=== PATIENT | male | born 2005 | race Two or more races ===

== ENCOUNTER 2024-10-22 02:41 | Emergency (ER) | payer MEDICAID, OTHER ==
[~2024-10-22] VITALS: Ht 165.1 cm; Wt 81.8 kg
[2024-10-22 02:55] VITALS: BP 124/53; PULSE 69; RESP 18; TEMP 98.7; O2SAT 96
[2024-10-22 03:19] LABS: Urine Bacteria None Seen /hpf (None Seen)
[2024-10-22 03:30] LABS: Urine Blood Negative /uL (Negative); Urine Clarity Clear (Clear); Urine Color Yellow (Yellow); Urine Mucus FEW (None Seen); Urine Protein, UAD Negative (Negative); Urine Specific Gravity 1.028 (1.001-1.035); Urine Squamous Epithelial Cell None Seen /hpf (<5); Urine Urobilinogen 2 mg/dL (Negative); Urine WBC 1 /HPF (0-3)
--- NOTE | 2024-10-22 03:39 | ED.PDOC ---
General HPI Comments A 19 YEAR OLD MALE PRESENTS TO THE ED WITH COMPLAINT OF LEFT GROIN PAIN. LEFT GROIN/TESTICLE/LOWER ABDOMINAL PAIN STARTING YESTERDAY MORNING. PT STATE THERE IS SOME PAIN WITH URINATION, PAIN INCREASES WITH EXTENSION OF THE LEFT LEG PATIENT DENIES FEVER, CHILLS, SHORTNESS OF BREATH, CHEST PAIN, NAUSEA, VOMITING, HEADACHE, OR OTHER COMPLAINTS. NO OTHER SYMPTOMS OR MODIFYING FACTORS AT THIS TIME. Chief Complaint: Testicle Pain Time Seen by MD: 03:09 Reviewed notes: Nurses Notes, Medications, Allergies Allergies: Coded Allergies: NO KNOWN ALLERGIES (Unverified , 10/22/24) Information Source: Patient Mode of Arrival: Ambulatory Past Medical History PAST MEDICAL HISTORY: Denies Surgical History: Denies all surgeries Family History Family History: Reviewed,noncontributory to illness Social History Smoker: Non-Smoker Alcohol: Denies ETOH Use Drugs: Denies Drug Use Constitutional: denies: chills, diaphoresis, fatigue, fever, malaise, sweats, weakness, others EENTM: denies: blurred vision, double vision, ear bleeding, ear discharge, ear drainage, ear pain, ear ringing, eye pain, eye redness, hearing loss, mouth pain, mouth swelling, nasal discharge, nose bleeding, nose congestion, nose pain, photophobia, tearing, throat pain, throat swelling, voice changes, others Respiratory: denies: cough, hemoptysis, orthopnea, SOB at rest, shortness of breath, SOB with excertion, stridor, wheezing, others Cardiovascular: denies: chest pain, dizzy spells, diaphoresis, Dyspnea on exertion, edema, irregular heart beat, left arm pain, lightheadedness, palpitations, PND, syncope, others Gastrointestinal: denies: abdomen distended, abdominal pain, blood streaked bowels, constipated, diarrhea, dysphagia, difficulty swallowing, hematemesis, melena, nausea, poor appetite, poor fluid intake, rectal bleeding, rectal pain, vomiting, others Genitourinary: reports: others (LEFT GROIN PX); denies: burning, dysuria, flank pain, frequency, hematuria, incontinence, penile discharge, penile sore, pain, testicle pain, testicle swelling, urgency Neurological: denies: dizziness, fainting, headache, left sided numbness, left sided weakness, numbness, paresthesia, pre-existing deficit, right sided numbness, right sided weakness, seizure, speech problems, tingling, tremors, weakness, others Musculoskeletal: denies: back pain, gout, joint pain, joint swelling, muscle pain, muscle stiffness, neck pain, others Integumetry: denies: bruises, change in color, change in hair/nails, dryness, laceration, lesions, lumps, rash, wounds, others Allergic/Immunocompromised: denies: Difficulty Healing, Frequent Infections, Hives, Itching, others Hematologic/Lymphatic: denies: anemia, blood clots, easy bleeding, easy bruising, swollen glands, others Endocrine: denies: excessive hunger, excessive sweating, excessive thirst, excessive urination, flushing, intolerance to cold, intolerance to heat, unexplained weight gain, unexplained weight loss, others Psychiatric: denies: anxiety, bipolar disorder, depression, hopeless, panic disorder, schizophrenia, sleepless, suicidal, others Physical Exam General Appearance: No Apparent Distress, Normal HEENT: Pharynx Normal Neck: Full Range of Motion, Non-Tender Respiratory: Lungs Clear, No Respiratory Distress, Normal Breath Sounds Cardiovascular: No Edema, No Murmur, Normal Peripheral Pulses, Regular Rate/Rhythm Breast Exam: Deferred Gastrointestinal: No Organomegaly, Non Tender, No Pulsatile Mass, Normal Bowel Sounds, Soft Genitalia: Other (MODERATE LEFT GROIN PAIN ON PALPATION. NEGATIVE TESTICULAR PAIN OR EDEMA. NO BULGING WITH COUGHING NO NOTED HERNIA ON PHYSICAL EXAM. ) Pelvic: Deferred Rectal: Deferred Extremities: Normal capillary refill, Normal inspection, Normal range of motion, Non-tender, No pedal edema Musculoskeletal : Apperance: Normal Neurologic: Alert, curing press maintainer II-XII nml as Tested, No Motor Deficits, Normal Affect, Normal Mood, No Sensory Deficits Cerebellar Function: Normal Reflexes: Normal Skin: Dry, Normal Color, Warm Lymphatic: No Adenopathy Was a procedure done? Was a procedure done?: No Differential Diagnosis Kidney stone (Female): N/A Kidney stone (Male): Strain, Urinary obstruction, Urolithiasis, Urinary tract infection Penile/Scrotal: Epidiymitis, STD, UTI, Urinary Retention X-Ray, Labs, Meds, VS Vital Signs Date Time Temp Pulse Resp B/P (MAP) Pulse Ox O2 Delivery O2 Flow Rate FiO2 10/22/24 02:55 98.7 69 18 124/53 (76) 96 10/22/24 02:55 Room Air 10/22/24 02:55 98.7 69 18 124/53 (76) 96 98.7 Lab Test 10/22/24 03:00 Range/Units Urine Color Yellow Yellow Urine Clarity Clear Clear Urine pH 6.0 5.0-9.0 Urine Specific [place] 1.028 1.001-1.035 Urine Protein Negative Negative Urine Ketones Trace Negative Urine Blood Negative Negative /uL Urine Nitrite Negative Negative Urine Bilirubin Negative Negative Urine Urobilinogen 2 H Negative mg/dL Urine Leukocyte Esterase Negative Negative /uL Urine RBC <1 0 - 3 /hpf Urine Microscopic WBC 1 0-3 /HPF Urine Squamous Epithelial Cells None seen <5 /hpf Urine Bacteria None seen None Seen /hpf Urine Mucus Few None Seen Urine Glucose Normal Normal mg/dL Current Medications Medications (Trade) Dose Ordered Sig/Darcy Route Start Time Stop Time Status Last Admin Ketorolac Tromethamine (Toradol Injection) 60 mg ONCE ONCE IM 10/22/24 04:30 10/22/24 04:31 DC 10/22/24 04:23 X-Ray, Labs, Meds, VS Comment ULTRASOUND NEGATIVE. LIKELY MUSCLE STRAIN OF THE GROIN. PATIENT GIVEN TORADOL 60 MG IM HE REPORTS MODERATE IMPROVEMENT IN PAIN IS REQUESTING DISCHARGE AT THIS TIME SCRIPT IBUPROFEN. FOLLOW-UP WITH PCP IN 1 TO 2 DAYS. TAKE MEDICATIONS PRESCRIBED. RETURN TO ED FOR ANY NEW OR WORSENING SYMPTOMS. Time of 1ST Reevaluation: 05:25 Reevaluation 1ST: Improved Patient Education/Counseling: Diagnosis, Treatment, Prognosis, Need For Follow Up Family Education/Counseling: Diagnosis, Treatment, Prognosis, Need For Follow Up Departure 1 Departure Time of Disposition: 05:20 Impression: Primary Impression: Strain of left inguinal muscle Qualified Codes: S39.013A - Strain of muscle, fascia and tendon of pelvis, initial encounter Disposition: HOME / SELF CARE / HOMELESS Condition: Stable e-Prescriptions Ibuprofen Micronized (Ibuprofen) 800 Mg Tab 800 MG PO TID PRN for 7 Days, #21 TAB Prov: LYNSEY MOJICA 10/22/24 Discharged With: Significant Other Critical Care Note Critical Care Time?: No Stability Stability form required: LYNSEY Garcia Oct 22, 2024 03:39
[2024-10-22] MEDS: KETOROLAC TROMETH 60MG/2ML VIAL IM ONE (04:23)
--- NOTE | 2024-10-22 05:04 | DVH ---
EXAM: US LEFT LOWER EXTREMITY ULTRASOUN DATE OF SERVICE: 10/22/2024 04:23 AM ORDERING PHYSICIAN: LYNSEY MOJICA REASON FOR EXAM: LEFT GROIN U/S TECHNIQUE: Ultrasound of the left groin COMPARISON: None FINDINGS: No fluid collection. No abscess. No pseudo aneurysm. IMPRESSION: 1. Unremarkable exam. End of Report
[2024-10-22] MEDS ORDERED: IBUP-1455 PO (05:23)
== END 2024-10-22 05:41 | disposition home or self-care (01) ==
LOC: ER 02:45
DX: S39.011A Strain of muscle, fascia and tendon of abdomen, initial encounter (principal); R30.9 Painful micturition, unspecified; M79.605 Pain in left leg; X58.XXXA Exposure to other specified factors, initial encounter; Y93.89 Activity, other specified; Y92.89 Other specified places as the place of occurrence of the external cause; Y99.8 Other external cause status
CPT/HCPCS: 81001; 93926; 96372; 99285; J1885